=== PATIENT | female | born 1955 | race Hispanic/Latino ===

== ENCOUNTER → 2024-07-02 | Outpatient (CLI) | payer OTHER ==
--- NOTE | 2024-07-02 11:43 | EKG ---
[facility] Test Date: 2024-07-02 Test Time: 12:40:48 Pat Name: DEVAN THAPA Department: [facility] Room: Gender: F Circulation Assistant: [id number] : 1955 Requested By: JUSTEN STODDARD Order Number: [id number] Reading MD: Mikey Parada Measurements Intervals [place] Rate: 80 P: 72 VA: 136 QRS: 46 QRSD: 82 T: 81 QT: 356 QTc: 410 Interpretive Statements Normal sinus rhythm Possible Left atrial enlargement Anteroseptal infarct , age undetermined T wave abnormality, consider lateral ischemia No previous ECG available for comparison Electronically Signed On 07-02-2024 16:16:56 DEVELOPMENTAL WRITING INSTRUCTOR by Mikey Parada Please click the below link to view image of tracing.
== END | disposition home or self-care (01) ==
LOC: RAH 11:11
PROVIDERS: ATTEND Psychiatry & Neurology Psychiatry
DX: R94.31 Abnormal electrocardiogram [ECG] [EKG] (principal); Z79.899 Other long term (current) drug therapy
CPT/HCPCS: 93005